=== PATIENT | male | born 1985 | race African-American/Black ===

== ENCOUNTER 2019-12-28 12:02 | Emergency (ER) | payer SELFPAY | END 2019-12-28 12:50 | disposition left against medical advice (07) | LOC: EDBD → NAV ERS 12:02 | DX: Z53.21 Procedure and treatment not carried out due to patient leaving prior to being seen by health care provider (principal) ==

== ENCOUNTER 2019-12-29 06:29 | Emergency (ER) | payer SELFPAY ==
[2019-12-29] MEDS ORDERED: Sodium Chloride 0.9% 1,000 ML ONE (07:08)
[2019-12-29 08:15] LABS: ALT (SGPT) 13 U/L (8-55); AST (SGOT) 12 U/L (5-34); Albumin 4.5 g/dL (3.5-5.0); Alkaline Phosphatase 82 U/L (40-110); Anion Gap 14 mmol/L (10-20); BUN (Urea Nitrogen) 6 mg/dL (8.9-20.6); Bilirubin, Total 0.8 mg/dL (0.2-1.2); Calc. Creatinine Clearance 0 mL/min (70-130); Calcium 9.8 mg/dL (7.8-10.44); Carbon Dioxide 25 mmol/L (22-29); Chloride 107 mmol/L (98-107); Estimated GFR-MDRD Greater than 90; Globulin 3.3 g/dL (2.4-3.5); Glucose 94 mg/dL (70-105); Lipase 33 U/L (8-78); Potassium 4.1 mmol/L (3.5-5.1); Protein, Total 7.8 g/dL (6.0-8.3); Sodium 142 mmol/L (136-145)
[2019-12-29 08:27] LABS: Anisocytosis SLIGHT = 6-15 cells (100X) (0-5/hpf); MDiff Complete? YES; Platelet Morphology Comment Appears Adequate
[2019-12-29 08:28] LABS: Hemoglobin 12.1 g/dL (14.0-18.0); Mean Corpuscular HGB CONC 34.5 g/dL (32.0-36.0); Mean Corpuscular Hemoglobin 30.3 pg (27.0-31.0); Mean Corpuscular Volume 87.9 fL (78.0-98.0); Mean Platelet Volume 5.8 fL (7.4-10.4); Platelet Count 337 thou/uL (130-400); RBC Distribution Width 15.6 % (11.5-14.5); Red Blood Cell (RBC) Count 3.99 mill/uL (4.70-6.10); Target Cells SLIGHT = 2-5 cells (100X) (0-1/hpf); White Blood Cell (WBC) Count 6.6 thou/uL (4.8-10.8)
[2019-12-29 08:33] LABS: Lymphocytes 24 % (21-51); Monocytes 15 % (0-10); Neutrophil 59 % (42-75); Reactive Lymphocytes 2 % (0-10)
[2019-12-29] MEDS ORDERED: Promethazine HCl 25 MG/ML VIAL ONE (08:39)
[2019-12-29] MEDS ORDERED: Morphine 4 MG/ML VIAL ONE (08:40)
[2019-12-29] MEDS ORDERED: diphenhydrAMINE 50 MG/ML VIAL ONE (09:17)
--- NOTE | 2019-12-29 09:24 | RAD ---
PA AND LATERAL VIEWS OF CHEST: Date: 12/29/2019 HISTORY: Chest pain. FINDINGS: The heart size is normal. The lungs are expanded without lobar consolidation, pneumothoraces, or pleu ral effusions. No acute osseous abnormalities are seen. IMPRESSION: No radiographic evidence of acute cardiopulmonary process. POS: [facility]
[2019-12-29] MEDS ORDERED: Morphine 2 MG/ML SYRINGE ONE (10:11)
[2019-12-29 11:47] LABS: Reticulocyte Count 3.2 % (0.5-1.5)
== END 2019-12-29 10:21 | disposition home or self-care (01) ==
LOC: EDBD 06:29 → NAV ERS 06:29
DX: J06.9 Acute upper respiratory infection, unspecified (principal); R10.817 Generalized abdominal tenderness; M79.662 Pain in left lower leg; M79.661 Pain in right lower leg; D57.20 Sickle-cell/Hb-C disease without crisis; F17.210 Nicotine dependence, cigarettes, uncomplicated; Z79.899 Other long term (current) drug therapy
CPT/HCPCS: 71046; 80053; 82274; 83690; 84484; 85025; 85046; 87081; 87430; 87804; 93005; 96372; 96374; J1200; J2270; J2550; J7050

== ENCOUNTER 2019-12-30 16:20 | Emergency (ER) | payer SELFPAY | END 2019-12-30 17:14 | disposition left against medical advice (07) | LOC: NAV ERS 16:20 | DX: Z53.21 Procedure and treatment not carried out due to patient leaving prior to being seen by health care provider (principal) ==